=== PATIENT | female | born 1985 | race Caucasian/White ===

== ENCOUNTER 2017-02-11 00:08 | Emergency (ER) | payer MEDICAID ==
[~2017-02-11] VITALS: Ht 165.1 cm; Wt 65.8 kg
[2017-02-11 00:13] VITALS: BP 115/78
== END 2017-02-11 02:04 | disposition home or self-care (01) ==
LOC: ER 00:08
DX: F41.9 Anxiety disorder, unspecified (principal); F31.9 Bipolar disorder, unspecified; F42.9 Obsessive-compulsive disorder, unspecified; J45.909 Unspecified asthma, uncomplicated; Z88.0 Allergy status to penicillin; Z88.8 Allergy status to other drugs, medicaments and biological substances
CPT/HCPCS: 99283; A4606; Z7610

== ENCOUNTER 2017-02-23 22:30 | Emergency (ER) | payer MEDICAID ==
[~2017-02-23] VITALS: Ht 165.1 cm; Wt 63.5 kg
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
--- NOTE | 2017-02-23 22:50 | NUR ---
URINE COLLECTED. CALLED LAB FOR DRYING ROOM OPERATOR
[2017-02-23 23:03] LABS: BASOPHILS # (AUTO) 0.1 /CMM (0.0-0.2); BASOPHILS % (AUTO) 0.7 % (0.0-2.0); EOSINOPHILS # (AUTO) 0.2 /CMM (0.0-0.7); EOSINOPHILS % (AUTO) 1.8 % (0.0-6.0); HEMATOCRIT 38 % (33-45); HEMOGLOBIN 12.4 g/dL (11.5-14.8); LYMPHOCYTES # (AUTO) 2.6 /CMM (0.8-4.8); LYMPHOCYTES % (AUTO) 27.9 % (20.0-44.0); MEAN CORPUSCULAR HEMOGLOBIN 27 PG (26.0-33.0); MEAN CORPUSCULAR HGB CONC 33 g/dl (31.0-36.0); MEAN CORPUSCULAR VOLUME 83 fL (82-100); MONOCYTES # (AUTO) 0.9 /CMM (0.1-1.30); MONOCYTES % (AUTO) 9.6 % (2.0-12.0); NEUTROPHILS # (AUTO) 5.5 /CMM (1.8-8.9); PLATELET COUNT (AUTO) 305 /CMM (150-450); RDW COEFFICIENT OF VARIATION 14.1 (11.5-15.0); RED BLOOD CELL COUNT(AUTO) 4.56 MIL/uL (4.0-5.2); WHITE BLOOD COUNT (AUTO) 9.2 K/uL (4.3-11.0)
[2017-02-23 23:10] LABS: APPEARANCE,URINE CLEAR (CLEAR); BILIRUBIN,URINE NEGATIVE (NEGATIVE); BLOOD, URINE 1+ Ery/uL (NEGATIVE); COLOR,URINE YELLOW (YELLOW); KETONES,URINE NEGATIVE (NEGATIVE); LEUKOCYTE ESTERASE ,URINE 3+ (NEGATIVE); NITRITE, URINE NEGATIVE (NEGATIVE); PROTEIN,URINE NEGATIVE (NEGATIVE); UGLUCOSE NEGATIVE (NEGATIVE); UROBILINOGEN,URINE 0.2 EU/dL (0.2)
[2017-02-23 23:13] LABS: PREGNANCY TEST URINE QUAL NEGATIVE (NEGATIVE)
[2017-02-23 23:17] LABS: BACTERIA,URINE None seen /HPF (None Seen); SQUAMOUS EPITHELIAL CELL,UR Few /HPF (None Seen)
[2017-02-23 23:28] LABS: ALANINE AMINOTRANSFERASE 21 U/L (12-78); ALBUMIN 3.9 g/dL (3.4-5.0); ALCOHOL, BLOOD < 3 mg/dL (0-0); ALKALINE PHOSPHATASE 77 U/L (46-116); ASPARTATE AMINOTRANSFERASE 14 U/L (15-37); BILIRUBIN,TOTAL 0.3 mg/dL (0.2-1.0); CARBON DIOXIDE 30 mmol/L (21-32); CHLORIDE 104 mmol/L (98-107); CREATININE 0.9 mg/dL (0.6-1.3); GLUCOSE 96 mg/dL (74-106); POTASSIUM 4.2 mmol/L (3.5-5.1); SALICYLATE 1.2 mg/dL (2.8-20.0); SODIUM SERUM 141 mmol/L (136-145); TOTAL PROTEIN, SERUM 7.9 g/dL (6.4-8.2); UREA NITROGEN, BLOOD 23 mg/dL (7-18)
[2017-02-23 23:29] LABS: ACETAMINOPHEN 0 ug/ml (10-30)
--- NOTE | 2017-02-24 00:33 | NUR ---
CALLED [facility] FOR EVAL OF PT, ETA 40 MINUTES
--- NOTE | 2017-02-24 01:30 | NUR ---
LEX AT BEDSIDE FOR PSYCH EVAL.
--- NOTE | 2017-02-24 02:12 | NUR ---
REPORT GIVEN TO [facility]: GEMINI LANIER [phone] EXT [phone].
--- NOTE | 2017-02-24 02:40 | NUR ---
TALKED TO [facility] 2 HOUR ETA
--- NOTE | 2017-02-24 02:49 | NUR ---
[facility] NEW [facility] [phone]
--- NOTE | 2017-02-24 03:24 | NUR ---
CALLED TATIANA LANIER, RAUL ETA MAINTENANCE JOB TITLES [phone]
[2017-02-24 06:37] VITALS: BP 112/68
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
== END 2017-02-24 06:56 ==
LOC: ER 22:34
DX: F32.9 Major depressive disorder, single episode, unspecified (principal); R45.851 Suicidal ideations; F41.9 Anxiety disorder, unspecified; F42.9 Obsessive-compulsive disorder, unspecified; J45.909 Unspecified asthma, uncomplicated; Z88.1 Allergy status to other antibiotic agents; Z88.0 Allergy status to penicillin
CPT/HCPCS: 36415; 80048; 80076; 80305; 80329; 81001; 84703; 85025; 99285; A4606; G0480 ×2; Z7610; 81000-TC; 87086-TC

== ENCOUNTER 2017-03-18 20:52 | Emergency (ER) | payer MEDICAID, OTHER ==
[~2017-03-18] VITALS: Ht 167.6 cm; Wt 65.8 kg
[2017-03-18 21:24] VITALS: BP 121/76
[2017-03-18 21:48] LABS: BASOPHILS # (AUTO) 0.1 /CMM (0.0-0.2); BASOPHILS % (AUTO) 0.6 % (0.0-2.0); EOSINOPHILS # (AUTO) 0.2 /CMM (0.0-0.7); EOSINOPHILS % (AUTO) 1.6 % (0.0-6.0); HEMATOCRIT 37 % (33-45); HEMOGLOBIN 12.6 g/dL (11.5-14.8); LYMPHOCYTES # (AUTO) 3.3 /CMM (0.8-4.8); MEAN CORPUSCULAR HEMOGLOBIN 28 PG (26.0-33.0); MEAN CORPUSCULAR HGB CONC 34 g/dl (31.0-36.0); MEAN CORPUSCULAR VOLUME 82 fL (82-100); MONOCYTES # (AUTO) 0.9 /CMM (0.1-1.30); NEUTROPHILS # (AUTO) 6.2 /CMM (1.8-8.9); NEUTROPHILS % (AUTO) 58.8 % (43.0-81.0); PLATELET COUNT (AUTO) 286 /CMM (150-450); RDW COEFFICIENT OF VARIATION 12.8 (11.5-15.0); RED BLOOD CELL COUNT(AUTO) 4.54 MIL/uL (4.0-5.2); WHITE BLOOD COUNT (AUTO) 10.7 K/uL (4.3-11.0)
[2017-03-18 22:15] LABS: ALANINE AMINOTRANSFERASE 26 U/L (12-78); ALBUMIN 3.9 g/dL (3.4-5.0); ALKALINE PHOSPHATASE 78 U/L (46-116); ASPARTATE AMINOTRANSFERASE 16 U/L (15-37); BILIRUBIN,TOTAL 0.2 mg/dL (0.2-1.0); CARBON DIOXIDE 28 mmol/L (21-32); CHLORIDE 103 mmol/L (98-107); CREATININE 0.9 mg/dL (0.6-1.3); GLUCOSE 88 mg/dL (74-106); SALICYLATE 1.5 mg/dL (2.8-20.0); SODIUM SERUM 138 mmol/L (136-145); TOTAL PROTEIN, SERUM 7.8 g/dL (6.4-8.2); UREA NITROGEN, BLOOD 21 mg/dL (7-18)
[2017-03-18 22:16] LABS: ACETAMINOPHEN < 2 ug/ml (10-30)
[2017-03-18 22:25] LABS: ALCOHOL, BLOOD < 3 mg/dL (0-0)
== END 2017-03-18 23:08 | disposition home or self-care (01) ==
LOC: ER 20:53
DX: F29 Unspecified psychosis not due to a substance or known physiological condition (principal); J45.909 Unspecified asthma, uncomplicated; F41.9 Anxiety disorder, unspecified; F32.9 Major depressive disorder, single episode, unspecified; F39 Unspecified mood [affective] disorder; F42.8 Other obsessive-compulsive disorder; Z88.1 Allergy status to other antibiotic agents; Z88.8 Allergy status to other drugs, medicaments and biological substances
CPT/HCPCS: 36415; 80048; 80076; 80305; 80329; 84703; 85025; 99284; A4606; G0480 ×2; Z7610

== ENCOUNTER 2018-09-15 14:24 | Emergency (ER) | payer MEDICAID ==
[~2018-09-15] VITALS: Ht 165.1 cm; Wt 70.8 kg
[~2018-09-15 14:24] MED LIST: BREX0.5T PO; VENL75CA56 PO
--- NOTE | 2018-09-15 15:02 | NUR ---
PT AAOX4, SPEAKING FLUENTLY, VSS. PT C/O RT EYE PRESSURE. DENIES DIZZINESS, WEAKNESS, NUMBNESS OR TINGLING SENSATION, VISUAL CHANGES @ THIS TIME. PT SEEN & EVAL'D BY DR. MARTIN & WILL CONT TO MONITOR.
--- NOTE | 2018-09-15 15:41 | NUR ---
CALLED [employer] @ SPOKE WITH LOGAN TO PRESENT CASE. ON THE PHONE WITH DR MARTIN.
--- NOTE | 2018-09-15 15:42 | NUR ---
FAXED FACESHEET TO LOGAN FROM [facility] @
--- NOTE | 2018-09-15 15:55 | NUR ---
RECEIVED A CALL FROM LOGAN: PATIENT IS GOING TO [facility] ER # TO REPORT [phone] GÓMEZ (ACCEPTING MD). CASE NUMBER [id number].
--- NOTE | 2018-09-15 18:00 | NUR ---
PT SITTING UP ON GURNEY, AAOX4, VSS. DENIES DIZZINESS, N/V, WEAKNESS, NUMBNESS/TINGLING SENSATION @ THIS TIME. RR EVEN & UNLABORED. AWAITING TRANSFER TO [facility]. WILL CONT TO MONITOR.
--- NOTE | 2018-09-15 18:09 | NUR ---
CALLED [facility] FOR TRANSPORT ETA OF 2029 WAS GIVEN. TRIP#[id number]
[2018-09-15 20:27] VITALS: BP 121/84
--- NOTE | 2018-09-15 20:29 | NUR ---
REPROT GIVEN TO [facility] RN MARIO [phone].
--- NOTE | 2018-09-15 20:30 | NUR ---
REPORT GIVEN TO [facility] EMT FOR CONTINUITY OF CARE. PT AWARE OF TRANSPORT WITH ALL PERSONAL BELONGINGS, PT TRANSFERRED VIA GURNEY TO [facility], PER [facility] TOOK OVER CARE.
== END 2018-09-15 20:36 ==
LOC: ER 14:28
DX: H53.9 Unspecified visual disturbance (principal); J45.909 Unspecified asthma, uncomplicated; F41.9 Anxiety disorder, unspecified; F32.9 Major depressive disorder, single episode, unspecified; F42.8 Other obsessive-compulsive disorder; F39 Unspecified mood [affective] disorder; Z98.890 Other specified postprocedural states; Z88.8 Allergy status to other drugs, medicaments and biological substances; Z88.1 Allergy status to other antibiotic agents; Z60.2 Problems related to living alone; Z79.899 Other long term (current) drug therapy
CPT/HCPCS: 70450-TC; 84703-TC

== ENCOUNTER 2018-09-16 18:08 | Emergency (ER) | payer MEDICAID ==
[~2018-09-16] VITALS: Ht 165.1 cm; Wt 70.8 kg
[2018-09-16 18:08] VITALS: BP 127/72
--- NOTE | 2018-09-16 19:03 | NUR ---
CALLED [facility], SPOKE WITH YUVAL, TRANSFERRED CALL TO
[2018-09-16] MEDS ORDERED: diphenhydrAMINE HCL 25 MG CAPSULE PO ONE (20:00)
[2018-09-16] MEDS ORDERED: ACETAMINOPHEN 325 MG TABLET PO ONE (20:00)
[2018-09-16] MEDS ORDERED: DEXAMETHASONE 1 MG TABLET PO ONE (20:00)
[2018-09-16] MEDS ORDERED: METOCLOPRAMIDE HCL 10 MG TABLET PO ONE (20:00)
[2018-09-16] MEDS ORDERED: METOCLOPRAMIDE HCL 10 MG TABLET ONE (20:29)
[2018-09-16] MEDS ORDERED: DEXAMETHASONE 4 MG TABLET ONE (20:29)
[2018-09-16] MEDS ORDERED: diphenhydrAMINE HCL 25 MG CAPSULE ONE (20:29)
[2018-09-16] MEDS ORDERED: DEXAMETHASONE 1 MG TABLET ONE (20:29)
[2018-09-16] MEDS ORDERED: ACETAMINOPHEN 325 MG TABLET ONE (20:29)
== END 2018-09-16 20:55 | disposition home or self-care (01) ==
LOC: ER 18:10
DX: G43.909 Migraine, unspecified, not intractable, without status migrainosus (principal); F43.9 Reaction to severe stress, unspecified; F42.8 Other obsessive-compulsive disorder; J45.909 Unspecified asthma, uncomplicated; F41.9 Anxiety disorder, unspecified; F32.9 Major depressive disorder, single episode, unspecified; Z98.890 Other specified postprocedural states; Z88.1 Allergy status to other antibiotic agents; Z88.8 Allergy status to other drugs, medicaments and biological substances; Z60.2 Problems related to living alone; Z79.899 Other long term (current) drug therapy
CPT/HCPCS: 99284; A4606; J8540 ×2; J8597; Q0163

== ENCOUNTER 2018-10-12 06:08 | Emergency (ER) | payer MEDICAID ==
[~2018-10-12] VITALS: Ht 165.1 cm; Wt 72.6 kg
[2018-10-12 06:22] VITALS: BP 118/81
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
== END 2018-10-12 06:50 | disposition home or self-care (01) ==
LOC: ER 06:10
DX: F42.8 Other obsessive-compulsive disorder (principal); F41.9 Anxiety disorder, unspecified; R07.89 Other chest pain; J45.909 Unspecified asthma, uncomplicated; F32.9 Major depressive disorder, single episode, unspecified; Z98.890 Other specified postprocedural states; Z88.8 Allergy status to other drugs, medicaments and biological substances; Z88.1 Allergy status to other antibiotic agents; Z60.2 Problems related to living alone; Z79.899 Other long term (current) drug therapy

== ENCOUNTER 2019-01-27 18:16 | Emergency (ER) | payer MEDICAID ==
[~2019-01-27] VITALS: Ht 165.1 cm; Wt 66.7 kg
[2019-01-27 18:23] VITALS: BP 112/70
== END 2019-01-27 18:59 | disposition home or self-care (01) ==
LOC: ER 18:16
DX: F41.9 Anxiety disorder, unspecified (principal); L02.421 Furuncle of right axilla; R20.2 Paresthesia of skin; J45.909 Unspecified asthma, uncomplicated; F32.9 Major depressive disorder, single episode, unspecified; F42.8 Other obsessive-compulsive disorder; F39 Unspecified mood [affective] disorder; Z98.890 Other specified postprocedural states; Z60.2 Problems related to living alone; Z88.1 Allergy status to other antibiotic agents; Z88.8 Allergy status to other drugs, medicaments and biological substances

== ENCOUNTER 2019-02-16 18:28 | Emergency (ER) | payer MEDICAID ==
[~2019-02-16] VITALS: Ht 165.1 cm; Wt 66.7 kg
[2019-02-16 18:43] VITALS: BP 115/83
[2019-02-16] MEDS ORDERED: CYCLOBENZAPRINE 10 MG TABLET PO ONE (19:00)
[2019-02-16] MEDS ORDERED: KETOROLAC TROMETHAMINE INJ 60 MG/2 ML VIAL IM ONE (19:00)
[2019-02-16] MEDS ORDERED: CYCLOBENZAPRINE 10 MG TABLET ONE (19:05)
[2019-02-16] MEDS ORDERED: KETOROLAC TROMETHAMINE INJ 30 MG/ML VIAL ONE (19:05)
== END 2019-02-16 19:41 | disposition home or self-care (01) ==
LOC: ER 18:28
DX: S13.8XXA Sprain of joints and ligaments of other parts of neck, initial encounter (principal); R21 Rash and other nonspecific skin eruption; F41.9 Anxiety disorder, unspecified; J45.909 Unspecified asthma, uncomplicated; F32.9 Major depressive disorder, single episode, unspecified; F42.8 Other obsessive-compulsive disorder; F39 Unspecified mood [affective] disorder; Z98.890 Other specified postprocedural states; Z88.1 Allergy status to other antibiotic agents; Z60.2 Problems related to living alone; Z88.8 Allergy status to other drugs, medicaments and biological substances; W57.XXXA Bitten or stung by nonvenomous insect and other nonvenomous arthropods, initial encounter; Y93.89 Activity, other specified; Y92.89 Other specified places as the place of occurrence of the external cause; Y99.8 Other external cause status
CPT/HCPCS: 96372; 99283; J1885

== ENCOUNTER 2019-03-07 22:25 | Emergency (ER) | payer MEDICAID ==
[~2019-03-07] VITALS: Ht 165.1 cm; Wt 67.1 kg
[2019-03-07 22:30] VITALS: BP 117/73
== END 2019-03-07 23:45 | disposition home or self-care (01) ==
LOC: ER 22:27
DX: F41.9 Anxiety disorder, unspecified (principal); F32.9 Major depressive disorder, single episode, unspecified; F42.8 Other obsessive-compulsive disorder; J45.909 Unspecified asthma, uncomplicated; Z98.890 Other specified postprocedural states; Z88.8 Allergy status to other drugs, medicaments and biological substances; Z88.1 Allergy status to other antibiotic agents; Z60.2 Problems related to living alone; Z79.899 Other long term (current) drug therapy

== ENCOUNTER 2019-04-19 18:47 | Emergency (ER) | payer MEDICAID ==
[~2019-04-19] VITALS: Ht 165.1 cm; Wt 68.0 kg
[2019-04-19 19:10] VITALS: BP 121/76
== END 2019-04-19 19:46 | disposition home or self-care (01) ==
LOC: ER 18:51
DX: F41.9 Anxiety disorder, unspecified (principal); J45.909 Unspecified asthma, uncomplicated; F32.9 Major depressive disorder, single episode, unspecified; F42.8 Other obsessive-compulsive disorder; Z98.890 Other specified postprocedural states; Z88.8 Allergy status to other drugs, medicaments and biological substances; Z88.1 Allergy status to other antibiotic agents; Z60.2 Problems related to living alone; Z79.899 Other long term (current) drug therapy

== ENCOUNTER → 2019-05-22 | Emergency (ER) | payer MEDICAID ==
[~2019-05-22] VITALS: Ht 165.1 cm; Wt 68.0 kg
[2019-05-22 20:23] VITALS: BP 17/70
== END | disposition home or self-care (01) ==
LOC: ER 20:10
DX: S09.8XXA Other specified injuries of head, initial encounter (principal); F41.9 Anxiety disorder, unspecified; J45.909 Unspecified asthma, uncomplicated; F32.9 Major depressive disorder, single episode, unspecified; F42.8 Other obsessive-compulsive disorder; F39 Unspecified mood [affective] disorder; Z60.2 Problems related to living alone; Z79.899 Other long term (current) drug therapy; Z88.1 Allergy status to other antibiotic agents; Z88.3 Allergy status to other anti-infective agents; Z88.8 Allergy status to other drugs, medicaments and biological substances; W22.8XXA Striking against or struck by other objects, initial encounter; Y93.I9 Activity, other involving external motion; Y92.89 Other specified places as the place of occurrence of the external cause; Y99.8 Other external cause status

== ENCOUNTER 2019-06-29 06:51 | Emergency (ER) | payer MEDICAID ==
[~2019-06-29] VITALS: Ht 172.7 cm; Wt 65.3 kg
[2019-06-29 07:00] VITALS: BP 112/76
--- NOTE | 2019-06-29 07:12 | NUR ---
Assumed care patient awake alert non distress
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
--- NOTE | 2019-06-29 07:26 | NUR ---
PT ENDORSED TO GEMINI RAIN
--- NOTE | 2019-06-29 09:11 | NUR ---
Patient discharged to home in stable condition. Written and verbal after care instructions given. Patient verbalizes understanding of instruction.
== END 2019-06-29 09:13 | disposition home or self-care (01) ==
LOC: ER 06:55
DX: R07.89 Other chest pain (principal); F41.9 Anxiety disorder, unspecified; F32.9 Major depressive disorder, single episode, unspecified; J45.909 Unspecified asthma, uncomplicated; Z98.890 Other specified postprocedural states; Z60.2 Problems related to living alone; Z79.899 Other long term (current) drug therapy; Z88.1 Allergy status to other antibiotic agents; Z88.8 Allergy status to other drugs, medicaments and biological substances

== ENCOUNTER 2019-07-04 10:52 | Emergency (ER) | payer MEDICAID, OTHER ==
[~2019-07-04] VITALS: Ht 172.7 cm; Wt 65.3 kg
[2019-07-04 10:58] VITALS: BP 135/81
== END 2019-07-04 12:49 | disposition home or self-care (01) ==
LOC: ER 10:58
DX: J34.89 Other specified disorders of nose and nasal sinuses (principal); J45.909 Unspecified asthma, uncomplicated; Z98.890 Other specified postprocedural states; Z60.2 Problems related to living alone; Z79.899 Other long term (current) drug therapy; Z88.8 Allergy status to other drugs, medicaments and biological substances; Z88.1 Allergy status to other antibiotic agents
CPT/HCPCS: 70160-TC

== ENCOUNTER 2019-08-03 08:32 | Emergency (ER) | payer MEDICAID, OTHER ==
[~2019-08-03] VITALS: Ht 165.1 cm; Wt 65.8 kg
--- NOTE | 2019-08-03 09:16 | NUR ---
seen and evaluated by Dr. Knutson.
[2019-08-03] MEDS ORDERED: TDAP [DIPH/PERTUSSIS/TET] 0.5 ML VIAL IM ONE ×2 (09:21→09:30)
[2019-08-03 09:41] VITALS: BP 118/80
--- NOTE | 2019-08-03 09:41 | NUR ---
Patient discharged to home in stable condition. Written and verbal after care instructions given. Patient verbalizes understanding of instruction.
== END 2019-08-03 09:41 | disposition home or self-care (01) ==
LOC: ER 08:35
DX: S69.82XA Other specified injuries of left wrist, hand and finger(s), initial encounter (principal); J45.909 Unspecified asthma, uncomplicated; F41.9 Anxiety disorder, unspecified; F32.9 Major depressive disorder, single episode, unspecified; F42.9 Obsessive-compulsive disorder, unspecified; Z98.890 Other specified postprocedural states; Z88.8 Allergy status to other drugs, medicaments and biological substances; Z88.1 Allergy status to other antibiotic agents; Z60.2 Problems related to living alone; Z79.899 Other long term (current) drug therapy; W26.0XXA Contact with knife, initial encounter; Y93.89 Activity, other specified; Y92.89 Other specified places as the place of occurrence of the external cause; Y99.8 Other external cause status
CPT/HCPCS: 90471; 90715; 99283; A6403

== ENCOUNTER 2019-12-04 17:03 | Emergency (ER) | payer MEDICAID ==
[~2019-12-04] VITALS: Ht 165.1 cm; Wt 63.5 kg
--- NOTE | 2019-12-04 17:20 | NUR ---
body pain x 2 weeks. PT AAOX4, VSS. RR EVEN & UNLABORED. PLACED ON REAL ESTATE OFFICE SUPERVISOR, SR. PT AWAITING EVAL BY RANDELL. WILL CONT TO MONITOR.
--- NOTE | 2019-12-04 17:45 | NUR ---
Patient discharged to home in stable condition. Written and verbal after care instructions given. Patient verbalizes understanding of instruction.
[2019-12-04 17:46] VITALS: BP 122/80
== END 2019-12-04 17:46 | disposition home or self-care (01) ==
LOC: ER 17:07
DX: M79.10 Myalgia, unspecified site (principal); J45.909 Unspecified asthma, uncomplicated; F41.9 Anxiety disorder, unspecified; F32.9 Major depressive disorder, single episode, unspecified; Z98.890 Other specified postprocedural states; Z88.8 Allergy status to other drugs, medicaments and biological substances; Z88.1 Allergy status to other antibiotic agents; Z79.899 Other long term (current) drug therapy

== ENCOUNTER 2019-12-11 14:37 | Emergency (ER) | payer MEDICAID ==
[~2019-12-11] VITALS: Ht 165.1 cm; Wt 66.7 kg
--- NOTE | 2019-12-11 14:47 | NUR ---
"I stopped my abilify- yesterday developed sharp chest pain. Now dull but still there". to ER bed 9, hooked to cardiac and bp monitor and pox, changed to hosp gown, warm blanket provided, patient aao x 4, breathing even and unlabored, Dr Bowser at bedside
--- NOTE | 2019-12-11 15:01 | NUR ---
COMPENSATION AND HRIS ANALYST AT BEDSIDE
[2019-12-11 16:41] LABS: BASOPHILS # (AUTO) 0.1 /CMM (0.0-0.2); BASOPHILS % (AUTO) 0.7 % (0.0-2.0); EOSINOPHILS % (AUTO) 1.7 % (0.0-6.0); HEMATOCRIT 41 % (33-45); HEMOGLOBIN 13.3 g/dL (11.5-14.8); LYMPHOCYTES # (AUTO) 2.2 /CMM (0.8-4.8); LYMPHOCYTES % (AUTO) 26.5 % (20.0-44.0); MEAN CORPUSCULAR HGB CONC 33 g/dl (31.0-36.0); MEAN CORPUSCULAR VOLUME 83 fL (82-100); MONOCYTES # (AUTO) 0.6 /CMM (0.1-1.30); MONOCYTES % (AUTO) 7.5 % (2.0-12.0); NEUTROPHILS # (AUTO) 5.2 /CMM (1.8-8.9); NEUTROPHILS % (AUTO) 63.6 % (43.0-81.0); PLATELET COUNT (AUTO) 323 /CMM (150-450); RED BLOOD CELL COUNT(AUTO) 4.91 MIL/uL (4.0-5.2); WHITE BLOOD COUNT (AUTO) 8.3 K/uL (4.3-11.0)
--- NOTE | 2019-12-11 16:42 | NUR ---
PATIENT IN BED AWAKE, HOOKED TO MONITOR, VSS. KEPT WARM SAFE AND COMFORTABLE.
[2019-12-11 16:49] LABS: CALCIUM, SERUM 8.9 mg/dL (8.5-10.1); CARBON DIOXIDE 30 mmol/L (21-32); CHLORIDE 102 mmol/L (98-107); CREATININE 0.8 mg/dL (0.6-1.3); GLUCOSE 88 mg/dL (74-106); POTASSIUM 3.9 mmol/L (3.5-5.1); SODIUM SERUM 138 mmol/L (136-145); UREA NITROGEN, BLOOD 17 mg/dL (7-18)
--- NOTE | 2019-12-11 17:52 | NUR ---
Patient discharged to home in stable condition. Written and verbal after care instructions given. Patient verbalizes understanding of instruction.
[2019-12-11 17:53] VITALS: BP 119/67
== END 2019-12-11 17:53 | disposition home or self-care (01) ==
LOC: ER 14:42
DX: R07.89 Other chest pain (principal); J45.909 Unspecified asthma, uncomplicated; F41.9 Anxiety disorder, unspecified; F32.9 Major depressive disorder, single episode, unspecified; Z98.890 Other specified postprocedural states; Z88.8 Allergy status to other drugs, medicaments and biological substances; Z88.1 Allergy status to other antibiotic agents; Z60.2 Problems related to living alone; Z79.899 Other long term (current) drug therapy
CPT/HCPCS: 36415; 71045-TC; 80048-TC; 84484-TC; 84702-TC; 85025-TC

== ENCOUNTER 2020-04-18 11:15 | Emergency (ER) | payer MEDICAID ==
[~2020-04-18] VITALS: Ht 165.1 cm; Wt 70.3 kg
[2020-04-18 11:24] VITALS: BP 123/85
--- NOTE | 2020-04-18 11:42 | NUR ---
Patient discharged to home in stable condition. Written and verbal after care instructions given. Patient verbalizes understanding of instruction.
== END 2020-04-18 11:44 | disposition home or self-care (01) ==
LOC: ER 11:34
DX: S00.31XA Abrasion of nose, initial encounter (principal); J45.909 Unspecified asthma, uncomplicated; F41.9 Anxiety disorder, unspecified; F32.9 Major depressive disorder, single episode, unspecified; F42.9 Obsessive-compulsive disorder, unspecified; Z98.890 Other specified postprocedural states; Z88.8 Allergy status to other drugs, medicaments and biological substances; Z88.1 Allergy status to other antibiotic agents; Z60.2 Problems related to living alone; Z79.899 Other long term (current) drug therapy; W20.8XXA Other cause of strike by thrown, projected or falling object, initial encounter; Y93.89 Activity, other specified; Y92.512 Supermarket, store or market as the place of occurrence of the external cause; Y99.8 Other external cause status

== ENCOUNTER 2020-06-15 13:00 | Emergency (ER) | payer MEDICAID ==
[~2020-06-15] VITALS: Ht 165.1 cm; Wt 65.8 kg
[2020-06-15 15:39] VITALS: BP 130/71
== END 2020-06-15 15:43 | disposition home or self-care (01) ==
LOC: ER 13:03
DX: J02.9 Acute pharyngitis, unspecified (principal); R19.7 Diarrhea, unspecified; Z20.828 Contact with and (suspected) exposure to other viral communicable diseases; Z88.8 Allergy status to other drugs, medicaments and biological substances; F42.9 Obsessive-compulsive disorder, unspecified; F39 Unspecified mood [affective] disorder; J45.909 Unspecified asthma, uncomplicated; Z79.899 Other long term (current) drug therapy
CPT/HCPCS: 87070; 87880; 99283; C9803; U0003; 86403-TC

== ENCOUNTER 2020-11-18 13:33 | Emergency (ER) | payer MEDICAID ==
[~2020-11-18] VITALS: Ht 165.1 cm; Wt 68.0 kg
[2020-11-18 13:40] VITALS: BP 125/74
--- NOTE | 2020-11-18 13:48 | NUR ---
SEEN AND EXAMINED BY .
[2020-11-18] MEDS ORDERED: ACETAMINOPHEN ES 500 MG TABLET ONE (13:57)
[2020-11-18] MEDS ORDERED: IBUPROFEN 600 MG TABLET ONE (13:57)
[2020-11-18] MEDS ORDERED: IBUPROFEN 600 MG TABLET PO ONE (14:00)
[2020-11-18] MEDS ORDERED: ACETAMINOPHEN ES 500 MG TABLET PO ONE (14:00)
--- NOTE | 2020-11-18 14:39 | NUR ---
HEAD OF SCIENCE AT BEDSIDE FOR XRAY.
[2020-11-18] MEDS ORDERED: CYCL10TA9 PO (15:20)
[2020-11-18] MEDS ORDERED: NAPR-1164 PO (15:20)
--- NOTE | 2020-11-18 15:32 | NUR ---
Patient discharged to home in stable condition. Written and verbal after care instructions given. Patient verbalizes understanding of instruction.
== END 2020-11-18 15:33 | disposition home or self-care (01) ==
LOC: ER 13:47
DX: S16.1XXA Strain of muscle, fascia and tendon at neck level, initial encounter (principal); M54.6 Pain in thoracic spine; J45.909 Unspecified asthma, uncomplicated; F41.9 Anxiety disorder, unspecified; F32.9 Major depressive disorder, single episode, unspecified; F42.9 Obsessive-compulsive disorder, unspecified; Z98.890 Other specified postprocedural states; Z88.8 Allergy status to other drugs, medicaments and biological substances; Z88.1 Allergy status to other antibiotic agents; Z60.2 Problems related to living alone; Z79.899 Other long term (current) drug therapy; X58.XXXA Exposure to other specified factors, initial encounter; Y93.89 Activity, other specified; Y92.89 Other specified places as the place of occurrence of the external cause; Y99.8 Other external cause status
CPT/HCPCS: 72050-TC; 72074-TC

== ENCOUNTER 2021-01-31 00:55 | Emergency (ER) | payer MEDICAID ==
[~2021-01-31] VITALS: Ht 165.1 cm; Wt 65.8 kg
[~2021-01-31 00:55] MED LIST changes: +CYCL10TA9 PO; +NAPR-1164 PO
[2021-01-31 01:12] VITALS: BP 125/69
== END 2021-01-31 02:21 | disposition home or self-care (01) ==
LOC: ER 00:56
DX: S50.02XA Contusion of left elbow, initial encounter (principal); F41.9 Anxiety disorder, unspecified; F32.9 Major depressive disorder, single episode, unspecified; F42.9 Obsessive-compulsive disorder, unspecified; Z98.890 Other specified postprocedural states; Z88.1 Allergy status to other antibiotic agents; Z88.8 Allergy status to other drugs, medicaments and biological substances; Z60.2 Problems related to living alone; Z79.899 Other long term (current) drug therapy; W18.39XA Other fall on same level, initial encounter; Y93.89 Activity, other specified; Y92.89 Other specified places as the place of occurrence of the external cause; Y99.8 Other external cause status

== ENCOUNTER 2023-10-02 08:27 | Emergency (ER) | payer MEDICAID, OTHER ==
[~2023-10-02] VITALS: Ht 165.1 cm; Wt 74.8 kg
[2023-10-02 08:39] VITALS: BP 133/77; TEMP 98.1; O2SAT 99
[2023-10-02] MEDS ORDERED: PERM60CR4 TP (09:02)
[2023-10-02] MEDS ORDERED: DIPH50CA4 PO (09:02)
== END 2023-10-02 09:51 | disposition home or self-care (01) ==
LOC: ER 08:37
DX: Z20.7 Contact with and (suspected) exposure to pediculosis, acariasis and other infestations (principal); F42.9 Obsessive-compulsive disorder, unspecified; F41.9 Anxiety disorder, unspecified; F32.A Depression, unspecified; Z88.8 Allergy status to other drugs, medicaments and biological substances

== ENCOUNTER 2023-12-29 07:02 | Emergency (ER) | payer MEDICAID ==
[~2023-12-29] VITALS: Ht 165.1 cm; Wt 72.6 kg
[~2023-12-29 07:02] MED LIST changes: +CARB15DR12 EACH EAR; +DIPH50CA4 PO; +FLUT16SP16 BNOSTRILS; +PERM60CR4 TP
[2023-12-29] MEDS ORDERED: ONDANSETRON 4 MG TAB.RAPDIS ONE (07:34)
[2023-12-29] MEDS: ONDANSETRON 4 MG TAB.RAPDIS SL ONE (07:36)
[2023-12-29 07:48] VITALS: BP 110/69; TEMP 97.7; O2SAT 98
== END 2023-12-29 07:48 | disposition home or self-care (01) ==
LOC: ER 07:03
DX: R11.2 Nausea with vomiting, unspecified (principal); T43.225A Adverse effect of selective serotonin reuptake inhibitors, initial encounter; F32.A Depression, unspecified; Z79.899 Other long term (current) drug therapy; Z60.2 Problems related to living alone; Z88.1 Allergy status to other antibiotic agents; Y92.89 Other specified places as the place of occurrence of the external cause
CPT/HCPCS: 99283; Q0162

== ENCOUNTER 2024-08-19 23:12 | Emergency (ER) | payer MEDICAID ==
[~2024-08-19] VITALS: Ht 165.1 cm; Wt 77.1 kg
[2024-08-19 23:56] VITALS: BP 124/72; TEMP 98.1; O2SAT 98
== END 2024-08-20 00:28 | disposition home or self-care (01) ==
LOC: ER 23:15
DX: J34.89 Other specified disorders of nose and nasal sinuses (principal); F32.A Depression, unspecified; F41.9 Anxiety disorder, unspecified; F42.9 Obsessive-compulsive disorder, unspecified; Z79.899 Other long term (current) drug therapy; Z88.0 Allergy status to penicillin; Z88.1 Allergy status to other antibiotic agents; Z53.29 Procedure and treatment not carried out because of patient's decision for other reasons